=== PATIENT | male | born 1985 | race Caucasian/White ===

== ENCOUNTER 2017-02-26 21:24 | Emergency (ER) | payer SELFPAY ==
[2017-02-26 22:02] LABS: HEMOGLOBIN 15.1 gm/dl (14.0-17.5); RED BLOOD COUNT 4.74 M/UL (4.20-5.50); WHITE BLOOD COUNT 10.5 K/UL (4.5-11.0)
[2017-02-26 22:26] LABS: BUN/CREATININE RATIO 12 (0-10)
== END 2017-02-27 00:15 | disposition home or self-care (01) ==
LOC: ER1 21:24
PROVIDERS: Emergency Medicine
DX: R10.30 Lower abdominal pain, unspecified (principal)
CPT/HCPCS: 36415; 80053; 81001; 83690; 85025; 87086; 96374; 96375; 99284; J2270; J2405; J7030; J7050; Q9962

== ENCOUNTER 2021-01-27 10:02 | Emergency (ER) | payer OTHER ==
[~2021-01-27 10:02] MED LIST: AUGMENTIN 875-1 EACH PO; CLARITIN10 M2 PO; CLEOCIN HCL150 MG PO; CYCLOBENZAPRINE10 MG PO; IBUPROFEN800 MG PO; LISINOPRIL20 MG PO; LOPRESSOR 25 MG25 MG PO; MEDROL4 MG PO; NORCO 5-325 TA1 EACH PO; NORCO 7.5-3251 EACH PO; NORVASC10 MG PO; PERCOCET 10-321 EACH PO; PROVENTIL HFA6.7 GM INH; RAMIPRIL10 MG PO; TESSALON PERLE100 MG PO; VIBRAMYCIN100 MG PO
[2021-01-27] MEDS ORDERED: IBU600 MG PO (12:45)
== END 2021-01-27 13:00 | disposition home or self-care (01) ==
LOC: ER1 10:02
DX: S63.616A Unspecified sprain of right little finger, initial encounter (principal); I10 Essential (primary) hypertension; W23.0XXA Caught, crushed, jammed, or pinched between moving objects, initial encounter; Y92.009 Unspecified place in unspecified non-institutional (private) residence as the place of occurrence of the external cause; Z88.2 Allergy status to sulfonamides
CPT/HCPCS: 73130; 99283

== ENCOUNTER 2021-03-06 16:41 | Inpatient (IN) | payer MEDICARE, OTHER ==
[~2021-03-06] VITALS: Ht 175.3 cm; Wt 117.9 kg
[~2021-03-06 16:41] MED LIST changes: +IBU600 MG PO
[2021-03-06 17:57] LABS: HEMOGLOBIN 15.7 gm/dl (14.0-17.5); RED BLOOD COUNT 4.82 M/UL (4.20-5.50); WHITE BLOOD COUNT 15.7 K/UL (4.5-11.0)
[2021-03-07 06:20] LABS: WHITE BLOOD COUNT 13.2 K/UL (4.5-11.0)
[2021-03-07 06:24] LABS: RED BLOOD COUNT 4.04 M/UL (4.20-5.50)
[2021-03-07 06:25] LABS: HEMOGLOBIN 13.1 gm/dl (14.0-17.5)
[2021-03-07 06:50] LABS: BUN/CREATININE RATIO 14 (0-10)
[2021-03-07] MEDS ORDERED: IBUPROFEN800 MG PO (10:54)
[2021-03-07] MEDS ORDERED: CHLORHEXIDINE FL1 ML PO (10:54)
[2021-03-07] MEDS ORDERED: SEROQUEL XR300 MG PO (10:55)
[2021-03-07] MEDS ORDERED: REXULTI4 MG PO (10:55)
[2021-03-07] MEDS ORDERED: FLUOXETINE HCL60 MG PO (10:55)
[2021-03-07] MEDS ORDERED: FLOVENT DISKUS50 MCG (10:57)
[2021-03-07] MEDS ORDERED: METOPROLOL TART25 MG PO (10:57)
[2021-03-07] MEDS ORDERED: GABAPENTIN400 MG PO (10:57)
[2021-03-07] MEDS ORDERED: OMEPRAZOLE40 MG PO (10:57)
[2021-03-07] MEDS ORDERED: DAILY VITE1 EACH PO (10:58)
[2021-03-07] MEDS ORDERED: COZAAR100 MG PO (10:58)
[2021-03-07] MEDS ORDERED: FISH OIL 1,0001 EACH PO (10:58)
[2021-03-07] MEDS ORDERED: ALL DAY ALLERGY10 M2 PO (10:59)
[2021-03-07] MEDS ORDERED: MONTELUKAST SOD10 MG PO (10:59)
[2021-03-07] MEDS ORDERED: VITAMIN D250 MCG PO (10:59)
[2021-03-07] MEDS ORDERED: VORT10TA PO (11:00)
[2021-03-07] MEDS ORDERED: TRAZODONE HCL100 MG PO (11:00)
[2021-03-07] MEDS ORDERED: DOXYCYCLINE HY100 MG PO (12:20)
[2021-03-08 06:12] LABS: HBSAG SCREEN Negative (Negative); HEP A AB, IGM Negative (Negative); HEP B CORE AB, IGM Negative (Negative); HEP C VIRUS AB 0.2 (0.0-0.9)
== END 2021-03-07 12:20 | disposition left against medical advice (07) | DRG 871 ==
LOC: ER1 16:41 → CDU 21:42 → MED SURG 4 21:42
PROVIDERS: Internal Medicine; Physician Assistant; ADMIT Family Medicine
DX: A41.89 Other specified sepsis (principal); J12.9 Viral pneumonia, unspecified; F12.10 Cannabis abuse, uncomplicated; Z20.822 Contact with and (suspected) exposure to COVID-19; E66.9 Obesity, unspecified; F31.9 Bipolar disorder, unspecified; F41.9 Anxiety disorder, unspecified; Z68.38 Body mass index [BMI] 38.0-38.9, adult
CPT/HCPCS: 36415; 71045; 80053; 80074; 82550; 82553; 83605; 84484; 85025; 87040; 93005; 94640; 94660; 94664; 94760; 96374; 99285; J0456; J0696; J1885; J7030; Q9967; U0002

== ENCOUNTER 2021-10-04 14:36 | Emergency (ER) | payer MEDICARE, OTHER ==
[~2021-10-04 14:36] MED LIST changes: +ALL DAY ALLERGY10 M2 PO; +CHLORHEXIDINE FL1 ML PO; +COZAAR100 MG PO; +DAILY VITE1 EACH PO; +DOXYCYCLINE HY100 MG PO; +FISH OIL 1,0001 EACH PO; +FLOVENT DISKUS50 MCG; +FLUOXETINE HCL60 MG PO; +GABAPENTIN400 MG PO; +METOPROLOL TART25 MG PO; +MONTELUKAST SOD10 MG PO; +OMEPRAZOLE40 MG PO; +REXULTI4 MG PO; +SEROQUEL XR300 MG PO; +TRAZODONE HCL100 MG PO; +VITAMIN D250 MCG PO; +VORT10TA PO
[2021-10-04] MEDS ORDERED: BENZONATATE100 MG PO (17:01)
== END 2021-10-04 17:10 | disposition home or self-care (01) ==
LOC: ER1 14:36
DX: B34.9 Viral infection, unspecified (principal); I10 Essential (primary) hypertension; Z20.822 Contact with and (suspected) exposure to COVID-19
CPT/HCPCS: 71045; 87081; 87880; 99283; U0002

== ENCOUNTER → 2022-01-08 | Outpatient (CLI) | payer MEDICARE, OTHER ==
[~2022-01-08] MED LIST changes: +BENZONATATE100 MG PO
== END ==
LOC: KOH-I 15:58
DX: M25.531 Pain in right wrist (principal)
CPT/HCPCS: 73110

== ENCOUNTER 2022-01-19 07:24 | Inpatient (IN) | payer MEDICARE, OTHER ==
[~2022-01-19] VITALS: Ht 175.3 cm; Wt 123.4 kg
[~2022-01-19 07:24] MED LIST changes: +FLONASE 0.05% N16 GM; -FLOVENT DISKUS50 MCG; -TRAZODONE HCL100 MG PO
[2022-01-19 08:04] LABS: HEMOGLOBIN 17.1 gm/dl (14.0-17.5); RED BLOOD COUNT 5.89 M/UL (4.20-5.50); WHITE BLOOD COUNT 12.7 K/UL (4.5-11.0)
[2022-01-19 08:36] LABS: BUN/CREATININE RATIO 7 (0-10)
[2022-01-19] MEDS ORDERED: TRAZODONE HCL100 MG PO (11:00)
[2022-01-19] MEDS ORDERED: VRAYLAR3 MG PO (13:43)
[2022-01-19] MEDS ORDERED: TESTOSTERO200 MG/1 M IM (13:44)
[2022-01-19] MEDS ORDERED: PROAIR HFA8.5 GM INH (13:46)
[2022-01-19] MEDS ORDERED: VITAMIN D21250 MCG PO (13:47)
[2022-01-20 07:09] LABS: RED BLOOD COUNT 4.68 M/UL (4.20-5.50); WHITE BLOOD COUNT 16.4 K/UL (4.5-11.0)
[2022-01-20 08:06] LABS: BUN/CREATININE RATIO 10 (0-10)
[2022-01-21 05:38] LABS: HEMOGLOBIN 13.2 gm/dl (14.0-17.5); RED BLOOD COUNT 4.39 M/UL (4.20-5.50)
[2022-01-21 05:48] LABS: WHITE BLOOD COUNT 10.2 K/UL (4.5-11.0)
[2022-01-21 06:06] LABS: BUN/CREATININE RATIO 8 (0-10)
[2022-01-21] MEDS ORDERED: OMNICEF 300 MG300 MG PO (11:45)
== END 2022-01-21 13:17 | disposition home or self-care (01) | DRG 871 ==
LOC: ER1 07:24 → MED SURG 4 08:56 → CDU 08:56 → MED SURG 4 11:02
PROVIDERS: Family Medicine; Internal Medicine; Physician Assistant; ADMIT Internal Medicine
DX: A41.9 Sepsis, unspecified organism (principal); J96.01 Acute respiratory failure with hypoxia; J18.9 Pneumonia, unspecified organism; R65.20 Severe sepsis without septic shock; N17.9 Acute kidney failure, unspecified; Z20.822 Contact with and (suspected) exposure to COVID-19; F41.9 Anxiety disorder, unspecified; F31.9 Bipolar disorder, unspecified; F17.290 Nicotine dependence, other tobacco product, uncomplicated; F12.10 Cannabis abuse, uncomplicated; E83.39 Other disorders of phosphorus metabolism; Z98.890 Other specified postprocedural states; Z82.49 Family history of ischemic heart disease and other diseases of the circulatory system; Z83.3 Family history of diabetes mellitus; Z82.3 Family history of stroke
CPT/HCPCS: 0240U; 36415; 36600; 71045; 80048; 80053; 80202; 82550; 82553; 82803; 83605; 83735; 83880; 84100; 84484; 85025; 85610; 86140; 87040; 96374; 96375; 99285; J0692; J2405; J2543; J3370; J7030; J7070